=== PATIENT | male | born 1965 | race Caucasian/White ===

== ENCOUNTER 2016-12-18 11:00 | Day surgery (SDC) | payer OTHER ==
[~2016-12-18] VITALS: Ht 182.9 cm; Wt 113.6 kg
[~2016-12-18 11:00] MED LIST: IBUP-1827 PO; Sodium Chloride LOK Flush 10 mL Syringe IV PRN; fentaNYL-PF 50 mCg/mL 2 mL Inj IVPUSH PRN
[2016-12-18 11:29] VITALS: BP 117/75; PULSE 65; RESP 14; O2SAT 96
[2016-12-18] MEDS: 0.9% Sodium Chloride 1,000 ML IV SCH ×3 (12:04→12:52)
[2016-12-18 12:27] VITALS: BP 87/52; PULSE 62; RESP 14; O2SAT 93
[2016-12-18 12:34] VITALS: BP 104/67; PULSE 70; RESP 12; O2SAT 97
[2016-12-18 12:41] VITALS: BP 110/69; PULSE 69; RESP 12; O2SAT 96
--- NOTE | 2016-12-18 13:31 | ENDO ---
[address] [address] ENDOSCOPY PROCEDURE PATIENT: ESTEFANIA PRASAD : 1965 MR#: [id number] ADMIT: 12/18/2016 JOB ID: [id number] DATE OF SERVICE: 12/18/2016 PROCEDURE PERFORMED: Colonoscopy. INDICATIONS: Screening. ASA CLASSIFICATION: The patient's ASA classification is I. MALLAMPATI SCORE: Mallampati score was 2. MEDICATIONS: 1. Versed 4 mg. 2. Fentanyl 100 mcg. INSTRUMENT USED: PCF-H180AL. PREPARATION QUALITY: Good. PROCEDURE DETAILS: After informed consent was obtained, the patient was brought into the GI suite, where he was placed on oxygen via nasal cannula and monitored with continuous pulse oximeter, telemetry, and blood pressure monitoring. A time-out was performed. Then, he was placed in the left lateral decubitus position and medications were administered for sedation. A digital rectal exam was performed which was unremarkable. The colonoscope was then inserted into the rectum and advanced under direct visualization to the cecum, which was identified by the presence of the ileocecal valve and appendiceal orifice. Once the cecum was reached, the colonoscope was withdrawn back into the rectum, as the mucosa and lumen were examined. In the rectum, retroflexion was performed. Following retroflexion, remaining air in the rectum was suctioned, and procedure was completed. FINDINGS: Scattered diverticula were seen in the sigmoid colon. Otherwise normal exam from rectum to cecum. IMPRESSION: Sigmoid diverticulosis. RECOMMENDATIONS: Repeat colonoscopy in 10 years, sooner if symptoms should dictate. COMPLICATIONS: None. ESTIMATED BLOOD LOSS: Zero.
== END 2016-12-18 23:59 | disposition home or self-care (01) ==
LOC: END 11:00
PROVIDERS: ATTEND Internal Medicine Gastroenterology
PROC: 0DJD8ZZ Inspection of Lower Intestinal Tract, Via Natural or Artificial Opening Endoscopic (ICD-10-PCS; principal; 2016-12-18 12:00)
DX: Z12.11 Encounter for screening for malignant neoplasm of colon (principal); K57.30 Diverticulosis of large intestine without perforation or abscess without bleeding
CPT/HCPCS: 99153; G0121; G0500; J2250; J3010; J7030